=== PATIENT | female | born 1985 | race Caucasian/White ===

== ENCOUNTER → 2019-06-26 | Outpatient (CLI) | payer BC ==
[2019-06-26 13:03] LABS: CLARITY,URINE SL CLOUDY; COLOR,URINE YELLOW; PH,URINE 7.5 (5-9); PROTEIN,URINE NEGATIVE (NEGATIVE)
[2019-06-26 13:04] LABS: BACTERIA,URINE FEW /HPF; BILIRUBIN,URINE NEGATIVE (NEGATIVE); GLUCOSE, URINE (UA) NEGATIVE (NEGATIVE); KETONES,URINE NEGATIVE (NEGATIVE); LEUKOCYTE ESTERASE ,URINE 3+ (NEGATIVE); NITRITE,URINE NEGATIVE (NEGATIVE); SQUAMOUS EPITHELIAL CELL,UR 25-50 /HPF; UROBILINOGEN,URINE 0.2 MG/DL (NORMAL); WBC,URINE 50-100 /HPF
== END ==
LOC: LAB FS 12:39
PROVIDERS: ATTEND Family Medicine
DX: O47.9 False labor, unspecified (principal); Z3A.00 Weeks of gestation of pregnancy not specified
CPT/HCPCS: 81000; 87088

== ENCOUNTER 2019-08-03 12:18 | Outpatient (CLI) | payer BC ==
[~2019-08-03] VITALS: Ht 162.6 cm; Wt 94.8 kg
--- NOTE | 2019-08-03 12:05 | NUR ---
CARLOS BLAKE presented to unit via ambulation, accompanied by S.O., with c/o ABD PAIN;CONTRACTIONS. CARLOS BLAKE weighed, gowned, voided, and to bed. EFHM and TOCO applied, VS taken. CARLOS BLAKE oriented to bed controls, call light, TV, heat, and A/C controls.
[2019-08-03 12:20] VITALS: BP 119/69
--- NOTE | 2019-08-03 12:45 | NUR ---
THIS RN CALLS DR MORA WITH PT REPORT. 38.4 WK GEST, CO UC 1.5-4 MIN, MILD PALPATION, SVE 3/70/-3 VERY POSTERIOR. NO NEW ORDERS. WILL RECHECK SVE IN 1 HR AND CALL WITH REPORT.
--- NOTE | 2019-08-03 13:30 | NUR ---
DR MORA CALLED WITH UPDATED PT REPORT. SVE NO CHANGE, URINE DIP RESULTS-POSSIBLE UTI, UC PATTERN, FHT STRIP REVIEWED. ORDERS TO DC HOME WITH RX CEFLEX.
--- NOTE | 2019-08-04 08:34 | Physician Query-Final Dx ---
SOHAIL GUTIERREZ 08/04/19 0834: Clinic Account Progress/Dx Physician Query: Please give diagnosis Please include # weeks gestation Date of Service Aug 03, 2019 at 12:18 TAMMY MORA MD 08/06/19 1629: Clinic Account Progress/Dx Physician Query: Please give diagnosis DIAGNOSIS: Diagnosis: (1) Uterine contractions at greater than 20 weeks of gestation Diagnosis Contractions at 38 weeks 3 days without labor SOHAIL GUTIERREZ Aug 04, 2019 08:34 TAMMY MORA MD Aug 06, 2019 16:29
== END 2019-08-03 13:48 | disposition home or self-care (01) ==
LOC: EDBD → WSo 12:18 → LDRP 12:19 → WSo 13:48
PROVIDERS: ATTEND Family Medicine
DX: O47.1 False labor at or after 37 completed weeks of gestation (principal); Z3A.38 38 weeks gestation of pregnancy
CPT/HCPCS: 87088; 99214

== ENCOUNTER 2019-08-06 11:16 | Inpatient (IN) | payer BC ==
[2019-08-06] VITALS (31 sets, daily range): BP systolic 85–132; BP diastolic 52–86
[~2019-08-06] VITALS: Ht 162.6 cm; Wt 95.9 kg
--- NOTE | 2019-08-06 11:08 | NUR ---
CARLOS BLAKE presented to unit via AMBULATORY from ED, accompanied by S/O, with c/o CTXS. CARLOS BLAKE weighed, gowned, voided, and to bed. EFHM and TOCO applied, VS taken. CARLOS BLAKE oriented to bed controls, call light, TV, heat, and A/C controls.
--- NOTE | 2019-08-06 11:20 | NUR ---
SVE 7-8cm, 80%, posterior. reports being tx'd for UTI on Saturday. cont contractions, unable to give frequency, and reports vaginal bleeding that started this a.m.
--- NOTE | 2019-08-06 11:22 | NUR ---
was called with update on pt's admit exam. admission orders received.
[2019-08-06] MEDS ORDERED: D5 LR IV SOLUTION 1,000 ML IV SCH (11:31)
--- NOTE | 2019-08-06 11:32 | NUR ---
#20g IV to Lt.hand x1 attempt by ROXANNE Vickers. admission labs collected from IV site prior to IVF's infusing.
[2019-08-06 11:45] LABS: BASOPHILS % (AUTO) 0 % (0-10); EOSINOPHILS % (AUTO) 0 % (0-10); HEMATOCRIT 36 % (35-52); HEMOGLOBIN 11.8 G/DL (11.5-16.0); LYMPHOCYTES # (AUTO) 1.6 X 10^3 (1.0-4.0); LYMPHOCYTES % (AUTO) 12 % (12-44); MEAN CORPUSCULAR HEMOGLOBIN 29 PG (25-34); MEAN CORPUSCULAR HGB CONC 33 G/DL (32-36); MEAN CORPUSCULAR VOLUME 88 FL (80-99); MEAN PLATELET VOLUME 11.6 FL (7.4-10.4); MONOCYTES % (AUTO) 8 % (0-12); NEUTROPHILS # (AUTO) 10.3 X 10^3 (1.8-7.8); NEUTROPHILS % (AUTO) 79 % (42-75); PLATELET COUNT 242 10^3/uL (130-400); RED CELL DISTRIBUTION WIDTH 18.7 % (10.0-14.5)
[2019-08-06] MEDS ORDERED: OXYTOCIN/NORMAL SALINE 500 ML IV ONE (11:55)
[2019-08-06] MEDS ORDERED: BUPIVACAINE 0.25% 30 ML (SENSORCAINE) VIAL ONE (12:07)
[2019-08-06] MEDS ORDERED: fentaNYL INJECTION 100 MCG/2 ML AMP ONE (12:07)
[2019-08-06] MEDS ORDERED: LIDOCAINE PF 2% 5 ML (XYLOCAINE) VIAL ONE (12:07)
[2019-08-06] MEDS ORDERED: SUFENTA 0.6MCG/ML BUPIVA 0.125 100 ML ONE (12:09)
--- NOTE | 2019-08-06 12:09 | NUR ---
LUIGI Valdivia and LORETA Lou here for epidural placement. Procedure explained, consent reviewed and signed by anesthesia. Questions answered to patient's satisfaction. Time out taken to verify correct patient/procedure. 1214- Patient up to side of bed, assisted into sitting position. Betadine prep done x3 and sterile drape applied. 1224- Local done, see anesthesia record. Test dose given, see anesthesia record for drug and dosage. Epidural catheter secured in place. Epidural placement complete. 1240-Assisted back into bed, monitors adjusted. Epidural dosed, see anesthesia record. Epidural of Sufenta/Bupvicaine @12cc/hr stated per pump. Patient tolerated procedure well.
--- NOTE | 2019-08-06 12:35 | NUR ---
Report rec'd from Lillie Hunter RN. Cares assumed at this time.
[2019-08-06] MEDS ORDERED: LACTATED RINGERS 1,000 ML IV SCH (12:46)
--- NOTE | 2019-08-06 12:59 | History & Physical-OB ---
OB - Chief Complaint & HPI Date/Time Date of Admission: Date of Admission: Aug 06, 2019 at 11:55 Date seen by a Provider: Aug 06, 2019 Time Seen by a Provider: 12:30 Chief Complaint/History OB-Reason for Admission/Chief: Onset of Labor Hx : 3 Hx Para: 2 Gestational Age in Weeks: 38 Gestational Age in Days: 6 Admission Nurse Assessment Rev: Yes Allergies and Home Medications Allergies Coded Allergies: No Known Drug Allergies (Unverified , 08/03/19) Home Medications No Active Prescriptions or Reported Meds Patient Home Medication List Home Medication List Reviewed: Yes OB - History Hx of Present Care: Yes Ultrasounds: Normal mid trimester US Obstetrical Complications: None Medical Complications: None Patient Past Medical History previously healthy OB - Admission Exam Physical Exam HEENT: NCAT Heart: Rhythm Normal Lungs: Clear Abdomen: Gravid Extremities: Normal Reflexes: Normal Cervical Dilatation: 9cm Effacement: 75% Station: 0 Membranes: Ruptured Amniotic Fluid: Clear Heart Rate: 130's Accelerations: Accelerations Present Decelerations: Variable Decelerations Short Term Variability: Present Assisted Variability: Average (6-25) Contractions on Admission: < 5 Minutes Apart Labs Laboratory Tests Test 08/06/19 11:32 Range/Units White Blood Count 13.0 H 4.3-11.0 10^3/uL Red Blood Count 4.09 L 4.35-5.85 10^6/uL Hemoglobin 11.8 11.5-16.0 G/DL Hematocrit 36 35-52 % Mean Corpuscular Volume 88 80-99 FL Mean Corpuscular Hemoglobin 29 25-34 PG Mean Corpuscular Hemoglobin Concent 33 32-36 G/DL Red Cell Distribution Width 18.7 H 10.0-14.5 % Platelet Count 242 130-400 10^3/uL Mean Platelet Volume 11.6 H 7.4-10.4 FL Neutrophils (%) (Auto) 79 H 42-75 % Lymphocytes (%) (Auto) 12 12-44 % Monocytes (%) (Auto) 8 0-12 % Eosinophils (%) (Auto) 0 0-10 % Basophils (%) (Auto) 0 0-10 % Neutrophils # (Auto) 10.3 H 1.8-7.8 X 10^3 Lymphocytes # (Auto) 1.6 1.0-4.0 X 10^3 Monocytes # (Auto) 1.0 0.0-1.0 X 10^3 Eosinophils # (Auto) 0.0 0.0-0.3 10^3/uL Basophils # (Auto) 0.0 0.0-0.1 10^3/uL OB - Assessment/Plan/Diagnosis Assessment Assessment: active labor Admission Dx Normal labor Admission Status: Inpatient Order (span 2 midnights) Reason for Inpatient Admission: Normal labor at 38 weeks 6 days. Plan Plan: Expectant Management Induction Method: TAMMY PHOENIX MD Aug 06, 2019 12:59
[2019-08-06] MEDS ORDERED: ONDANSETRON 4 MG/2 ML (SDV) Z0FRAN IV PRN (13:00)
[2019-08-06] MEDS ORDERED: EPIDURAL (SUFENTA 0.6MCG/ML BUPIVA 0.125%) 100 ML BAG EPI PRN (13:00)
[2019-08-06] MEDS ORDERED: NALOXONE 0.4 MG/ML 1 ML (NARCAN) VIAL IV PRN (13:00)
[2019-08-06] MEDS ORDERED: diphenhydrAMINE 50 MG/ML INJ (BENADRYL) IV PRN (13:00)
[2019-08-06] MEDS ORDERED: CATHETER FLUSH 10 ML SYR IV SCH ×2 (14:00→22:00)
[2019-08-06] MEDS ORDERED: LIDOCAINE/EPI 2% 1:200,00 (XYLOCAINE) 10 ML VIAL ONE (14:29)
[2019-08-06] MEDS: OXYTOCIN/NORMAL SALINE 500 ML IV SCH ×2 (14:42→16:16)
--- NOTE | 2019-08-06 15:56 | OB Labor & Delivery Record ---
Vag Delivery Note Vag Delivery Note Date of Delivery: 08/06/19 Preoperative Diagnosis: Tesfaye Mcdaniels is a (34 /Para 3 / 2, Gestational Age (wks)38with [6 days] Postoperative Diagnosis: Same Surgeon: TAMMY MORA Planning Engineer: [none] Anesthesia: [epidural] Delivery Type: [] Findings: Viable [male] infant, Lacerations: Intact placenta with 3 vessel cord. No nuchal cord, body cord or shoulder dystocia Estimated Blood Loss: [200] ml Complications: None Condition: Stable Description of Procedure: The patient is a 34 year old female who presented [in labor]. She was admitted and informed consent was obtained. Her labor course was remarkable for [OP presentation] She progressed to complete dilatation and began to push. She was then set up for delivery. The infant's head was delivered atraumatically in the [OA] position. The shoulders and remainder of the 's body were then delivered without difficulty. Upon delivery, the head was held below the level of the perineum and the mouth and nares were bulb suctioned. The cord was doubly clamped and cut after 60 seconds and placed on maternal abdomen. An intact placenta with 3-vessel cord delivered via Mikey and there was found to be minimal bleeding.~ Vigorous fundal massage was performed and the fundus was found to be firm. IV oxytocin was given. Examination of the vagina and perineum revealed a [2nd degree perineal] laceration repaired in the usual fashion with 3-0 vicryl suture. Following the repair, sponge, instrument and needle counts were correct. Mom and baby were both in stable condition in the labor suite. Vitals - Labs Vital Signs - I&O Vital Signs Date Time Temp Pulse Resp B/P (MAP) Pulse Ox O2 Delivery O2 Flow Rate FiO2 08/06/19 13:19 87 18 100/70 (80) 98 Room Air 08/06/19 13:14 77 18 110/70 (83) 99 Room Air 08/06/19 13:09 78 18 100/68 (79) 99 Room Air 08/06/19 13:04 94 18 113/61 (78) 98 Room Air 08/06/19 12:58 90 18 113/66 (82) 98 Room Air 08/06/19 12:55 80 18 109/65 (80) Room Air 08/06/19 12:52 95 18 109/70 (83) 99 Room Air 08/06/19 12:48 36.6 86 18 110/63 (79) 97 Room Air 08/06/19 12:43 90 18 110/61 (77) 97 Room Air 08/06/19 12:35 107 18 121/72 (88) 98 Room Air 08/06/19 12:30 96 18 121/76 (91) 98 Room Air 08/06/19 12:25 89 18 123/86 (98) 98 Room Air 08/06/19 12:20 90 18 116/71 (86) 98 Room Air 08/06/19 12:15 86 18 120/82 (95) Room Air 08/06/19 12:00 80 18 120/77 (91) Room Air 08/06/19 11:40 80 18 127/76 (93) Room Air 08/06/19 11:16 35.8 72 18 124/75 (91) Room Air Labs Laboratory Tests 08/06/19 11:32: White Blood Count 13.0H, Red Blood Count 4.09L, Hemoglobin 11.8, Hematocrit 36, Mean Corpuscular Volume 88, Mean Corpuscular Hemoglobin 29, Mean Corpuscular Hemoglobin Concent 33, Red Cell Distribution Width 18.7H, Platelet Count 242, Mean Platelet Volume 11.6H, Neutrophils (%) (Auto) 79H, Lymphocytes (%) (Auto) 12, Monocytes (%) (Auto) 8, Eosinophils (%) (Auto) 0, Basophils (%) (Auto) 0, Neutrophils # (Auto) 10.3H, Lymphocytes # (Auto) 1.6, Monocytes # (Auto) 1.0, Eosinophils # (Auto) 0.0, Basophils # (Auto) 0.0 TAMMY MORA MD Aug 06, 2019 15:56
[2019-08-06] MEDS ORDERED: BENZOCAINE/MENTHOL (DERMOPLAST) 56 ML CAN TP PRN (16:00)
[2019-08-06] MEDS ORDERED: WITCH HAZEL(TUCKS) 40 EA JAR TOP PRN (16:00)
[2019-08-06] MEDS ORDERED: MEASLES,MUMPS,RUBELLA 1 EA INJ SQ ONE (16:00)
[2019-08-06] MEDS ORDERED: TETANUS,DIPTH,PERTUSS P/F (BOOSTRIX) 0.5 ML VIAL IM ONE (16:00)
[2019-08-06] MEDS: IBUPROFEN 600 MG (MOTRIN) TAB PO SCH (18:18)
[2019-08-06] MEDS: DOCUSATE SODIUM 100 MG (COLACE) CAP PO SCH (20:17)
[2019-08-06] MEDS: ACETAMINOPHEN 500 MG TAB (TYLENOL) PO SCH (23:45)
[2019-08-07] VITALS: BP 102/61
[2019-08-07 04:00] VITALS: BP 92/52
[2019-08-07] MEDS: IBUPROFEN 600 MG (MOTRIN) TAB PO SCH ×3 (04:48→22:08)
[2019-08-07 06:22] LABS: BASOPHILS % (AUTO) 0 % (0-10); EOSINOPHILS # (AUTO) 0.1 10^3/uL (0.0-0.3); EOSINOPHILS % (AUTO) 1 % (0-10); HEMATOCRIT 31 % (35-52); HEMOGLOBIN 9.9 G/DL (11.5-16.0); LYMPHOCYTES % (AUTO) 17 % (12-44); MEAN CORPUSCULAR HEMOGLOBIN 29 PG (25-34); MEAN CORPUSCULAR HGB CONC 32 G/DL (32-36); MEAN CORPUSCULAR VOLUME 90 FL (80-99); MEAN PLATELET VOLUME 11.8 FL (7.4-10.4); MONOCYTES # (AUTO) 0.9 X 10^3 (0.0-1.0); MONOCYTES % (AUTO) 7 % (0-12); NEUTROPHILS # (AUTO) 9.1 X 10^3 (1.8-7.8); NEUTROPHILS % (AUTO) 76 % (42-75); PLATELET COUNT 188 10^3/uL (130-400); RED CELL DISTRIBUTION WIDTH 18.4 % (10.0-14.5)
[2019-08-07 09:25] VITALS: BP 123/80
[2019-08-07] MEDS: ACETAMINOPHEN 500 MG TAB (TYLENOL) PO SCH ×3 (09:25→22:08)
[2019-08-07] MEDS: DOCUSATE SODIUM 100 MG (COLACE) CAP PO SCH ×2 (09:25→22:08)
--- NOTE | 2019-08-07 09:25 | NUR ---
initial shift assessment completed, see interventions for further. POC reviewed, states understanding. scheduled medications given, see eMar for further.
--- NOTE | 2019-08-07 09:41 | Progress Note ---
Subjective Subjective/Events-last exam Doing well. going well. Objective Exam Last Set of Vital Signs Vital Signs Date Time Temp Pulse Resp B/P (MAP) Pulse Ox O2 Delivery O2 Flow Rate FiO2 08/07/19 04:00 36.5 80 20 92/52 (65) 98 Room Air Capillary Refill : I&O Intake and Output 08/07/19 00:00 Intake Total 3100 ml Balance 3100 ml Intake Oral 600 ml IV Total 2500 ml # Voids 2 Daily Weight Change No General: Alert, Oriented X3, Cooperative Psych/Mental Status: Mood NL Results/Procedures Lab Laboratory Tests 08/06/19 11:32: White Blood Count 13.0H, Red Blood Count 4.09L, Hemoglobin 11.8, Hematocrit 36, Mean Corpuscular Volume 88, Mean Corpuscular Hemoglobin 29, Mean Corpuscular Hemoglobin Concent 33, Red Cell Distribution Width 18.7H, Platelet Count 242, Mean Platelet Volume 11.6H, Neutrophils (%) (Auto) 79H, Lymphocytes (%) (Auto) 12, Monocytes (%) (Auto) 8, Eosinophils (%) (Auto) 0, Basophils (%) (Auto) 0, N eutrophils # (Auto) 10.3H, Lymphocytes # (Auto) 1.6, Monocytes # (Auto) 1.0, Eosinophils # (Auto) 0.0, Basophils # (Auto) 0.0 08/07/19 05:55: White Blood Count 12.0H, Red Blood Count 3.43L, Hemoglobin 9.9L, Hematocrit 31L, Mean Corpuscular Volume 90, Mean Corpuscular Hemoglobin 29, Mean Corpuscular Hemoglobin Concent 32, Red Cell Distribution Width 18.4H, Platelet Count 188, Mean Platelet Volume 11.8H, Neutrophils (%) (Auto) 76H, Lymphocytes (%) (Auto) 17, Monocytes (%) (Auto) 7, Eosinophils (%) (Auto) 1, Basophils (%) (Auto) 0, Neutrophils # (Auto) 9.1H, Lymphocytes # (Auto) 2.0, Monocytes # (Auto) 0.9, Eosinophils # (Auto) 0.1, Basophils # (Auto) 0.0 Assessment/Plan Assessment/Plan Assessment & Plan day #1 s/p 2nd degree laceration routine care Clinical Quality Measures DVT/VTE Risk/Contraindication: Risk Factor Score Per Nursin RFS Level Per Nursing on Admit: 1=Low/No VTE PPX NICOLE VINCENT DO Aug 07, 2019 09:41
--- NOTE | 2019-08-07 10:08 | Anesthesia-Regional Post-Op ---
Regional Patient Condition Mental Status: Alert, Oriented x3 Circulation: Same as Pre-Op Headache: Absent Sensation: Full Recovery Motor Block: Absent Post Op Complications Complications None Follow Up Care/Instructions Patient Instructions None needed. Anesthesia/Patient Condition Patient is doing well, no complaints, stable vital signs, no apparent adverse anesthesia problems. No complications reported per nursing. BISI RENEE CRNA Aug 07, 2019 10:08
[2019-08-07 12:00] VITALS: BP 117/76
[2019-08-07 16:07] VITALS: BP 117/75
[2019-08-07 20:49] VITALS: BP 119/69
[2019-08-08 02:30] VITALS: BP 94/66
[2019-08-08] MEDS: IBUPROFEN 600 MG (MOTRIN) TAB PO SCH ×2 (04:00→09:57)
[2019-08-08] MEDS: ACETAMINOPHEN 500 MG TAB (TYLENOL) PO SCH (04:00)
[2019-08-08 09:00] VITALS: BP 134/74
--- NOTE | 2019-08-08 09:00 | NUR ---
THIS RN INTRODUCES SELF TO PT. PHYSICAL ASSESSMENT AND VS TAKEN. DISCUSS PLAN OF PT CARE WITH PT, QUESTIONS ANSWERED. CALL LIGHT WITHIN REACH.
[2019-08-08] MEDS: DOCUSATE SODIUM 100 MG (COLACE) CAP PO SCH (09:57)
[2019-08-08] MEDS ORDERED: IBUP-844 PO (11:06)
--- NOTE | 2019-08-08 11:08 | Short Stay Summary ---
Discharge Summary Hospital Course Final Diagnosis: see hospital course Hospital Course Date of Admission: Aug 06, 2019 at 11:55 Admission Diagnosis : 1. Spontaneous onset of labor at 38w6d Family Physician/Provider: Breanna Liriano MD Date of Discharge: 08/08/19 Discharge Diagnosis: 1. s/p 2. second degree laceration- repaired Hospital Course: Routine course Labs and Pending Lab Test: Home Meds Active Ibuprofen Assessment/Pt Instructions Follow up with Dr. Liriano 6 weeks. Discharge Instructions Discharge Diet: No Restrictions Discharge Physical Examination General Appearance: Alert, Oriented X3, Cooperative Psych/Mental Status: Mood NL Allergies: Coded Allergies: No Known Drug Allergies (Unverified , 08/03/19) Discharge Summary Date of Admission Aug 06, 2019 at 11:55 Date of Discharge Clinical Quality Measures DVT/VTE Risk/Contraindication: Risk Factor Score Per Nursin RFS Level Per Nursing on Admit: 1=Low/No VTE PPX NICOLE VINCENT DO Aug 08, 2019 11:04
== END 2019-08-08 14:15 | disposition home or self-care (01) | DRG 807 ==
LOC: WSo 11:16 → LDRP 11:17 → EDBD 11:55 → LDRP 11:55 → WSo 11:55 → LDRP 17:30
PROVIDERS: ADMIT Family Medicine; ATTEND Family Medicine
PROC: 10E0XZZ Delivery of Products of Conception, External Approach (ICD-10-PCS; principal; 2019-08-06)
PROC: 0KQM0ZZ Repair Perineum Muscle, Open Approach (ICD-10-PCS; 2019-08-06)
PROC: 10907ZC Drainage of Amniotic Fluid, Therapeutic from Products of Conception, Via Natural or Artificial Opening (ICD-10-PCS; 2019-08-06)
DX: O75.89 Other specified complications of labor and delivery (principal); O70.1 Second degree perineal laceration during delivery; O64.0XX0 Obstructed labor due to incomplete rotation of fetal head, not applicable or unspecified; Z3A.38 38 weeks gestation of pregnancy; Z37.0 Single live birth
CPT/HCPCS: 36415; 85025; 86850; 86900; 86901; 99212

== ENCOUNTER → 2019-09-30 | Outpatient (CLI) | payer BC ==
[~2019-09-30] MED LIST: IBUP-844 PO
[2019-09-30 10:47] LABS: HEMATOCRIT 39 % (35-52); HEMOGLOBIN 12.2 G/DL (11.5-16.0); MEAN CORPUSCULAR HEMOGLOBIN 30 PG (25-34); MEAN CORPUSCULAR HGB CONC 32 G/DL (32-36); MEAN CORPUSCULAR VOLUME 93 FL (80-99); RED CELL DISTRIBUTION WIDTH 13.5 % (10.0-14.5); WHITE BLOOD COUNT 8.6 10^3/uL (4.3-11.0)
[2019-09-30 10:48] LABS: BASOPHILS # (AUTO) 0.1 10^3/uL (0.0-0.1); BASOPHILS % (AUTO) 1 % (0-10); EOSINOPHILS # (AUTO) 0.2 10^3/uL (0.0-0.3); EOSINOPHILS % (AUTO) 2 % (0-10); LYMPHOCYTES # (AUTO) 1.9 X 10^3 (1.0-4.0); LYMPHOCYTES % (AUTO) 22 % (12-44); MEAN PLATELET VOLUME 10.6 FL (7.4-10.4); MONOCYTES # (AUTO) 0.6 X 10^3 (0.0-1.0); MONOCYTES % (AUTO) 7 % (0-12); NEUTROPHILS # (AUTO) 5.8 X 10^3 (1.8-7.8); NEUTROPHILS % (AUTO) 67 % (42-75); PLATELET COUNT 322 10^3/uL (130-400)
[2019-09-30 11:08] LABS: POTASSIUM 3.7 MMOL/L (3.6-5.0); SODIUM 141 MMOL/L (135-145)
[2019-09-30 11:09] LABS: ALANINE AMINOTRANSFERASE 15 U/L (0-55); ALBUMIN 3.9 GM/DL (3.2-4.5); ALKALINE PHOSPHATASE 115 U/L (40-136); BILIRUBIN,TOTAL 0.2 MG/DL (0.1-1.0); BUN/CREATININE RATIO 17; CALCIUM 9.1 MG/DL (8.5-10.1); CARBON DIOXIDE 25 MMOL/L (21-32); CHLORIDE 103 MMOL/L (98-107); CREATININE SERUM 0.66 MG/DL (0.60-1.30); GFR ESTIMATED > 60; GLUCOSE 116 MG/DL (70-105); TOTAL PROTEIN 7.1 GM/DL (6.4-8.2)
== END ==
LOC: LAB FS 10:01
PROVIDERS: ATTEND Nurse Practitioner Family
DX: T14.8XXA Other injury of unspecified body region, initial encounter (principal); R23.8 Other skin changes; Z86.2 Personal history of diseases of the blood and blood-forming organs and certain disorders involving the immune mechanism
CPT/HCPCS: 36415; 80053; 85025

== ENCOUNTER 2023-08-28 11:06 | Emergency (ER) | payer SELFPAY ==
[~2023-08-28] VITALS: Ht 162 cm; Wt 83.9 kg
[2023-08-28 11:31] LABS: BILIRUBIN,URINE NEGATIVE (NEGATIVE); CLARITY,URINE CLEAR; COLOR,URINE YELLOW; GLUCOSE, URINE (UA) NEGATIVE (NEGATIVE); KETONES,URINE 2+ (NEGATIVE); LEUKOCYTE ESTERASE ,URINE 2+ (NEGATIVE); NITRITE,URINE NEGATIVE (NEGATIVE); PROTEIN,URINE NEGATIVE (NEGATIVE)
[2023-08-28 11:31] LABS: BASOPHILS # (AUTO) 0.1 10^3/uL (0.0-0.1); BASOPHILS % (AUTO) 0 % (0-10); EOSINOPHILS % (AUTO) 0 % (0-10); HEMATOCRIT 44 % (35-52); HEMOGLOBIN 13.9 g/dL (11.5-16.0); LYMPHOCYTES % (AUTO) 15 % (12-44); MEAN CORPUSCULAR HEMOGLOBIN 29 pg (25-34); MEAN CORPUSCULAR HGB CONC 32 g/dL (32-36); MEAN CORPUSCULAR VOLUME 92 fL (80-99); MEAN PLATELET VOLUME 12.1 fL (9.0-12.2); MONOCYTES # (AUTO) 0.7 10^3/uL (0.0-1.0); MONOCYTES % (AUTO) 5 % (0-12); NEUTROPHILS # (AUTO) 10.6 10^3/uL (1.8-7.8); NEUTROPHILS % (AUTO) 79 % (42-75); PLATELET COUNT 311 10^3/uL (130-400); WHITE BLOOD COUNT 13.4 10^3/uL (4.3-11.0)
[2023-08-28 11:43] LABS: BACTERIA,URINE TRACE /HPF
[2023-08-28 11:54] LABS: ALANINE AMINOTRANSFERASE 10 U/L (0-55); ALBUMIN 4.3 GM/DL (3.2-4.5); ALKALINE PHOSPHATASE 100 U/L (40-136); BILIRUBIN,TOTAL 0.5 MG/DL (0.1-1.0); BUN/CREATININE RATIO 13; CALCIUM 9.3 MG/DL (8.5-10.1); CARBON DIOXIDE 20 MMOL/L (21-32); CHLORIDE 101 MMOL/L (98-107); CREATININE SERUM 0.68 MG/DL (0.60-1.30); GFR ESTIMATED 114; GLUCOSE 113 MG/DL (70-105); POTASSIUM 3.4 MMOL/L (3.6-5.0); SALICYLATE < 0.3 MG/DL (5.0-20.0); SODIUM 139 MMOL/L (135-145); TOTAL PROTEIN 8.2 GM/DL (6.4-8.2)
[2023-08-28 11:55] LABS: ACETAMINOPHEN < 10 UG/ML (10-30)
[2023-08-28 11:56] LABS: AMPHETAMINE SCREEN, URINE NEGATIVE (NEGATIVE); BARBITURATE SCREEN URINE NEGATIVE (NEGATIVE); CANNABINOID SCREEN, URINE NEGATIVE (NEGATIVE); COCAINE SCREEN URINE NEGATIVE (NEGATIVE); METHADONE STAT NEGATIVE (NEGATIVE); OPIATE SCREEN URINE NEGATIVE (NEGATIVE); OXYCODONE STAT NEGATIVE (NEGATIVE); PROPOXYPHENE STAT NEGATIVE (NEGATIVE); TRICYCLIC ANTIDEPRESSANTS SCRE NEGATIVE (NEGATIVE)
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
[2023-08-29] MEDS ORDERED: NITROFURANTOIN Monohydrate/Macro 100 MG CAPSULE PO ONE (11:15)
[2023-08-29 11:45] VITALS: BP 112/76
== END 2023-08-29 11:45 ==
LOC: EDUNIT# 11:06 → ER FS 11:07
DX: F32.A Depression, unspecified (principal); R45.851 Suicidal ideations; N30.01 Acute cystitis with hematuria; R00.0 Tachycardia, unspecified; Z32.02 Encounter for pregnancy test, result negative
CPT/HCPCS: 36415; 80053; 80306; 81000; 84703; 85025; 87088; 87636; 93005; 99283; G0480 ×3; 80320; 80329